=== PATIENT | female | born 1955 | race Caucasian/White ===

== ENCOUNTER → 2016-05-22 | Day surgery (SDC) | payer OTHER ==
[~2016-05-22] VITALS: Ht 165.1 cm; Wt 83.9 kg
[~2016-05-22] MED LIST: ANASTROZOLE1 M1 PO; B COMPLETE1 EACH PO; CALCIUM 500 +1 EAC5 PO; CO Q-10100 MG PO; IBUPROFEN200 M3 PO; IBUPROFEN400 M1 PO; LIDOCAINE1 EACH TOP; LOSARTAN POTAS100 M1 PO; MEDROL4 M2 PO; OXYCODONE-ACET1 EACH PO; SIMVASTATIN20 M2 PO; STOOL SOFTENER100 M3 PO
--- NOTE | 2016-05-22 15:28 | Operative Report ---
Operative/Inv Procedure Report Surgery Date: 05/22/16 Name of Procedure: Removal of intact implant left, debrided pocket, capsulectomy, complex closure IE debridement. Incision tissue with 2 layer closure 16 centimeters Pre-Operative Diagnosis: Infected left breast implant Post-Operative Diagnosis: Same Estimated Blood Loss: less than 50ml Surgeon/Tenon Machine Operator: ALF SORIANO MD Anesthesia: laryngeal mask airway Operative/Procedure Note Note: Patient was counseled in regards to the procedure the alternatives risks and expected outcomes as relates to removal of left-sided breast implant with recent changes indicative of infection with a positive culture. Patient is likely candidate for autologous reconstruction and we'll consider that in the future. No guarantees were given in regards to the clearance of infection and/or proper wound healing i.e. there is a possibility of an open wound in this radiated field. Informed consent was signed today after additional discussions. She was brought to the operating room placed supine on the operating table. Intravenous antibiotics and laryngeal mask anesthesia was established. This was after the application of Venodyne boots. The chest was prepped and draped in usual sterile fashion. An excision was made through of better quality tissue outside of the dehiscing but intact scar. The implant was removed and there was serous fluid in the area. Previous cytology was taken yesterday in the office. No purulent contents were identified. Capsulectomy was done where appropriate and curettage was carried out of the entirety of the pocket. Triple antibiotic and Betadine irrigation and pulse lavage was used. 2 closure was carried out over a drain. Ends dictation
== END ==
LOC: STS 04:06
DX: T85.79XA Infection and inflammatory reaction due to other internal prosthetic devices, implants and grafts, initial encounter (principal); Y83.8 Other surgical procedures as the cause of abnormal reaction of the patient, or of later complication, without mention of misadventure at the time of the procedure; Z85.3 Personal history of malignant neoplasm of breast; Z90.12 Acquired absence of left breast and nipple; I10 Essential (primary) hypertension
CPT/HCPCS: 87070; 87075; 87184; 87147; 88305; J0690; J1580; J2250; J2405

== ENCOUNTER 2016-06-27 14:17 | Emergency (ER) | payer OTHER ==
[~2016-06-27] VITALS: Ht 165.1 cm; Wt 83.9 kg
[2016-06-27 15:22] LABS: ABSOLUTE BASOPHIL COUNT 0 /CUMM (0.0-0.2); ABSOLUTE EOSINOPHIL COUNT 0 /CUMM (0.0-0.7); ABSOLUTE GRANULOCYTE CT 8.4 /CUMM (1.4-6.5); ABSOLUTE LYMPH COUNT 1.3 /CUMM (1.2-3.4); ABSOLUTE MONOCYTE COUNT 1.4 /CUMM (0.10-0.60); BASOPHIL % 0.2 % (0.0-2.0); EOSINOPHIL % 0.3 % (0-5); GRANULOCYTE % 75.5 % (42.2-75.2); HEMATOCRIT 37.3 % (37-47); MEAN CORPUSCULAR HGB 26.9 PG (27.0-31.0); MEAN CORPUSCULAR HGB CONC 33.5 G/DL (33.0-37.0); MEAN CORPUSCULAR VOLUME 80.4 FL (81.0-99.0); PLATELET COUNT 236 /CUMM (130-400); RBC DISTRIBUTION WIDTH 17.5 % (11.5-14.5); RED BLOOD CELL CT 4.64 /CUMM (4.20-5.40); WHITE BLOOD CELL COUNT 11.2 /CUMM (4.8-10.8)
--- NOTE | 2016-06-27 15:27 | CT SCAN REPORT ---
EXAMINATION: CT HEAD WITHOUT CONTRAST CLINICAL INFORMATION: Headache and syncope. COMPARISON: None TECHNIQUE: Contiguous axial imaging was performed from the skull base to vertex without intravenous administration of contrast. DLP: 600 mGy-cm FINDINGS: There is no evidence of acute intracranial hemorrhage or territorial infarction. No abnormal mass effect or midline shift is seen. [place] to white matter differentiation is well preserved. No extra-axial fluid collections are identified. The ventricles are normal in size. There is no abnormal attenuation within the brain parenchyma. There is anterior falx and posterior tentorial meningeal calcification. The osseous structures and soft tissues are normal. The mastoid air cells and visualized portions of the paranasal sinuses are well aerated. IMPRESSION: No acute intracranial process seen.
[2016-06-27] MEDS ORDERED: ANASTROZOLE1 M1 PO (15:38)
[2016-06-27] MEDS ORDERED: SIMVASTATIN20 M2 PO (15:38)
[2016-06-27] MEDS ORDERED: LOSARTAN POTAS100 M1 PO (15:38)
[2016-06-27] MEDS ORDERED: CO Q-10100 MG PO (15:39)
[2016-06-27] MEDS ORDERED: B COMPLETE1 EACH PO (15:39)
[2016-06-27] MEDS ORDERED: CALCIUM 500 +1 EAC5 PO (15:40)
[2016-06-27] MEDS ORDERED: STOOL SOFTENER100 M3 PO (15:41)
[2016-06-27] MEDS ORDERED: IBUPROFEN200 M3 PO (15:41)
--- NOTE | 2016-06-27 15:42 | ED SYNCOPE COMPLAINT ---
History of Present Illness General Chief Complaint: Syncope and Near-Syncope Stated Complaint: BIBA WITH A SYNCOPE Source: patient, family, EMS Exam Limitations: no limitations Vital Signs & Intake/Output Vital Signs & Intake/Output Vital Signs Date Time Temp Pulse Resp B/P Pulse O2 O2 Flow FiO2 Ox Delivery Rate 06/27 1633 97.0 84 22 128/74 100 Room Air 06/27 1615 97.0 80 18 113/75 100 Room Air 06/27 1534 88 146/80 06/27 1533 85 122/74 06/27 1522 96 Room Air 06/27 1431 97.8 76 18 131/56 98 Room Air Allergies Coded Allergies: raspberry (Intermediate, DEEP PIMPLES IN GROIN AND UNDERARMS AND FACE 06/27/16) Reconcile Medications Anastrozole 1 MG TABLET 1 TAB PO DAILY BREAST CANCER (Reported) Calcium Carbonate/Vitamin D3 (Calcium 500 + D Tablet) (Unknown Strength) TABLET (Unknown Dose) PO TID SUPPLEMENT (Reported) Docusate Sodium (Stool Softener) 100 MG CAPSULE 1 CAP PO DAILY GI (Reported) Ibuprofen 200 MG CAPSULE 3 CAP PO ONCE PAIN (Reported) Losartan Potassium 100 MG TABLET 1 TAB PO DAILY BP (Reported) Simvastatin (Simvastatin*) 20 MG TABLET 1 TAB PO QPM CHOLESTEROL (Reported) Ubidecarenone (Co Q-10) 100 MG CAPSULE 1 CAP PO DAILY SUPPLEMENT (Reported) Vitamin B Complex (B Complete) 1 EACH TABLET 1 CAP PO DAILY SUPPLEMENT ( Reported) Triage Note: 61 YEAR OLD FEMALE TO ER VIA AMBULANCE FROM HER PLACE OF WORK AFTER A SYNCOPLE EPISODE. PT STATES THAT SHE STARTED WITH SINUS HEADACHE YESTERDAY AND STILL HAS A HEADACHE, PAIN IS L SIDE AND STATES THAT ITS BEHIND HER EYE. PT STATES THAT SHE JUST FEELS LIKE SHE CAN'T FUNCTION. 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 WHEN SHE STOOD BACK UP SHE BECAME DIZZY AND THE NEXT THING SHE KNEW SHE WAS WAKING UP WITH STUDENTS AND ANOTHER TEACHER STANDING OVER HER. PT ALSO STATES THAT SHE VOMITTED ALL OVER HERSELF. PT HAS HISTORY OF BREAST CANCER WITH BILATERAL MASECTOMY AND WAS ADMITTED IN MAY DUE TO INFECTIONN TO L IMPLANT. PT PALE , NSR ON MONITOR. Triage Nurses Notes Reviewed? yes HPI: Patient presents for evaluation of a fainting episode that occurred prior to arrival. Patient states she felt well yesterday, well enough to do some snow shoveling. However she did begin having what she felt to be a sinus headache yesterday consisting of a pressure and throbbing sensation about the left eye. She has had many similar headache episodes. She took ibuprofen without improvement. Today she felt faint during the morning but this began to resolve at about 1:30 in the afternoon. She then felt dizzy and near syncopal and put her head down on her desk. The point she vomited and lost consciousness apparently for about 30 seconds. She states that she did have a transient right -sided abdominal pain that has now resolved otherwise she denies fever or cold symptoms diarrhea dysuria or known ill contacts. Past History Travel History Traveled to [place] past 21 day No Medical History Any Pertinent Medical History? see below for history Neurological: NONE EENT: NONE Cardiovascular: hypertension, hyperlipidemia Respiratory: NONE Gastrointestinal: NONE Hepatic: NONE Renal: NONE Musculoskeletal: NONE Psychiatric: NONE Endocrine: NONE Blood Disorders: NONE Cancer(s): breast cancer Other Medical Hx: Migraine headaches, sinus headaches Surgical History Surgical History: STATUS POST SURGICAL REMOVAL OF LEFT BREAST PROSTHESIS 5 WEEKS AGO Psychosocial History What is your primary language Lao Tobacco Use: Never used ETOH Use: denies use Illicit Drug Use: denies illicit drug use Family History Hx Contributory? No Review of Systems Review of Systems Constitutional: Reports: no symptoms. EENTM: Reports: no symptoms. Respiratory: Reports: no symptoms. Cardiovascular: Reports: syncope. GI: Reports: no symptoms. Genitourinary: Reports: no symptoms. Musculoskeletal: Reports: no symptoms. Skin: Reports: no symptoms. Neurological/Psychological: Reports: no symptoms. All Other Systems: Reviewed and Negative Physical Exam Physical Exam Cranial Nerves: CRANIAL NERVES ii THROUGH x INTACT Comments: Gen.: Well-nourished, well-developed, no acute respiratory distress. Head: Normocephalic, atraumatic. Eyes: Normal inspection bilaterally Ears: Normal inspection bilaterally Nose: Normal inspection Throat/mouth : Moist mucosa Neck: Supple, full range of motion, no goiter, no coronary bruits Heart: Regular rate and rhythm, no murmurs rubs or gallops Lungs: Clear to auscultation bilaterally with normal air entry Chest: Nontender Back: Normal range of motion Abdomen: Soft, nontender, nondistended, normal bowel sounds Extremities: Normal range of motion grossly, equal radial pulses, no cyanosis clubbing or edema, normal strength Neurologic: speech is clear, no dysmetria Skin: warm and dry Psychiatric: Calm, cooperative, no apparent delusions or hallucinations Core Measures ACS in differential dx? No CVA/TIA Diagnosis: No Severe Sepsis Present: No Septic Shock Present: No Progress Differential Diagnosis: orthostatic syncope, TIA/CVA, DYSRHYTHMIA Plan of Care: Orders Procedure Date/time Status TROPONIN LEVEL 06/27 1438 Complete COMPREHENSIVE METABOLIC PANEL 06/27 1438 Complete CBC WITHOUT DIFFERENTIAL 06/27 1438 Complete EKG 06/27 1419 Active Laboratory Tests 06/27/16 1444: Anion Gap 13, Estimated GFR > 60, BUN/Creatinine Ratio 17.5, Glucose 107 H, Calcium 9.6, Total Bilirubin 0.8, AST 24, ALT 48, Alkaline Phosphatase 79, Troponin I < 0.01, Total Protein 6.8, Albumin 4.1, Globulin 2.7, Albumin/ Globulin Ratio 1.5, CBC w Diff NO MAN DIFF REQ, RBC 4.64, MCV 80.4 L, MCH 26.9 L, RDW 17.5 H, MPV 10.0, Gran % 75.5 H, Lymphocytes % 11.7 L, Monocytes % 12.3 H, Eosinophils % 0.3, Basophils % 0.2, Absolute Granulocytes 8.4 H, Absolute Lymphocytes 1.3, Absolute Monocytes 1.4 H, Absolute Eosinophils 0, Absolute Basophils 0, PUBS MCHC 33.5 Comments: 06/27/2016 4:37:59 PM During my care of this patient I considered the following differential diagnoses in addition to previously listed: Cardiac syncope/dysrhythmia but the patient had a prodromal phase and the EKG showed no dysrhythmia, there were no significant electrolyte abnormalities, and the patient denied heart palpitations. Obstructive hypertrophic cardiomyopathy but there was no history of syncope with exercise, dyspnea or chest pain on exertion, palpitations or history of cardiac disease Aortic stenosis but the patient is no history of syncope after exercise AND had no crescendo decrescendo systolic murmur or precordial thrill. Subclavian steal syndrome but the patient denied arm pain or paresthesias and physical examination showed no pulse deficit. Carotid sinus hypersensitivity but physical examination reveals no goiter or other neck mass. 06/27/2016 4:59:31 PM patient treated with Toradol and Phenergan. Departure Departure Disposition: HOME OR SELF CARE Condition: Stable Clinical Impression Primary Impression: Syncope Qualifiers: Syncope type: unspecified Qualified Code: R55 - Syncope and collapse Secondary Impressions: Headache Qualifiers: Headache type: other vascular headache Qualified Code: G44.1 - Vascular headache, not elsewhere classified Referrals: MICHAEL MCGRATH MD (PCP/Family) Additional Instructions: Follow-up with your medical doctor tomorrow for reevaluation and further testing as indicated. Return if any concerns or sudden worsening. Departure Forms: Customer Survey General Discharge Information
[2016-06-27 17:19] VITALS: BP 142/80
== END 2016-06-27 17:20 ==
LOC: ERH 14:17
PROVIDERS: Emergency Medicine
DX: R55 Syncope and collapse (principal); R51 Headache
CPT/HCPCS: 93005; 93010; 96374; 96375; J1885; J2550

== ENCOUNTER 2016-09-28 10:30 | Emergency (ER) | payer OTHER ==
[~2016-09-28 10:30] MED LIST changes: -IBUPROFEN400 M1 PO; -LIDOCAINE1 EACH TOP; -MEDROL4 M2 PO; -OXYCODONE-ACET1 EACH PO
--- NOTE | 2016-09-28 11:52 | ED NECK/BACK PAIN COMPLAINT ---
History of Present Illness General Chief Complaint: Low Back Pain/Injury Stated Complaint: LBP Source: patient, family Exam Limitations: no limitations Vital Signs & Intake/Output Vital Signs & Intake/Output Vital Signs Date Time Temp Pulse Resp B/P B/P Pulse O2 O2 Flow FiO2 Mean Ox Delivery Rate 09/28 1328 97.7 69 16 138/76 96 Room Air 09/28 1123 Room Air 09/28 1040 97.9 76 16 144/86 98 Room Air Allergies Coded Allergies: raspberry (Intermediate, DEEP PIMPLES IN GROIN AND UNDERARMS AND FACE 06/27/16) Reconcile Medications Anastrozole 1 MG TABLET 1 TAB PO DAILY BREAST CANCER (Reported) Calcium Carbonate/Vitamin D3 (Calcium 500 + D Tablet) (Unknown Strength) TABLET (Unknown Dose) PO TID SUPPLEMENT (Reported) Docusate Sodium (Stool Softener) 100 MG CAPSULE 1 CAP PO DAILY GI (Reported) Ibuprofen 200 MG CAPSULE 3 CAP PO ONCE PAIN (Reported) Ibuprofen 400 MG TABLET 1 TAB PO Q6P PRN BACK PAIN Lidocaine 5 % ADH..PATCH 1 PAT TOP DAILY BACK PAIN Losartan Potassium 100 MG TABLET 1 TAB PO DAILY BP (Reported) Methylprednisolone. (Medrol) 4 MG TAB.DS.PK 1 DP PO AD DISC HERNIATION 6 on day 1 then reduce by one tablet daily until gone Oxycodone HCl/Acetaminophen (Oxycodone-Acetaminophen 5-325) 5 MG-325 MG TABLET 1 TAB PO TIDPRN BACK PAIN Simvastatin (Simvastatin*) 20 MG TABLET 1 TAB PO QPM CHOLESTEROL (Reported) Ubidecarenone (Co Q-10) 100 MG CAPSULE 1 CAP PO DAILY SUPPLEMENT (Reported) Vitamin B Complex (B Complete) 1 EACH TABLET 1 CAP PO DAILY SUPPLEMENT ( Reported) Triage Note: PT STATES 2 DAYS AGO SHE WAS BENT OVER AND SNEEZED AND SINCE THEN HAS HAD "SCIATICA" TYPE PAIN. REPORTS PAIN SHOOTS DOWN HER RIGHT LEG. PAINFUL TO WALK AND WITH MOVEMENT. Triage Nurses Notes Reviewed? yes HPI: 61F PMH BREAST CANCER S/P BILATERAL MASTECTOMY 1 YEAR AGO PRESENTING WITH SEVERE LOWER BACK PAIN THAT STARTED ACUTELY WHEN SHE SNEEZED VIOLENTLY WHILE BENDING OVER. BACK PAIN IS LUMBAR, PARASPINAL, R>L, WITH RIGHT SCIATIC PAIN YESTERDAY THAT HAS RESOLVED, BUT PATIENT STILL UNABLE TO MOVE WITHOUT SEVERE PAIN. DENIES TRAUMA, FEVER, CHILLS, CHEST PAIN, SOB, ABDOMINAL PAIN, DIARRHEA, DYSURIA, INCONTINENCE, SADDLE PARESTHESIA, LOWER EXTREMITY PARESTHESIA, NUMBNESS, OR MOTOR WEAKNESS. HAD A BONE SCAN LAST WEEK THAT SHOWED POSSIBLE SPINAL METASTASES IN THE THORACIC AND CERVICAL AREA. Past History Travel History Traveled to [place] past 21 day No Medical History Any Pertinent Medical History? see below for history Neurological: NONE EENT: NONE Cardiovascular: hypertension, hyperlipidemia Respiratory: NONE Gastrointestinal: NONE Hepatic: NONE Renal: NONE Musculoskeletal: NONE Psychiatric: NONE Endocrine: NONE Blood Disorders: NONE Cancer(s): breast cancer Other Medical Hx: Migraine headaches, sinus headaches Surgical History Surgical History: STATUS POST SURGICAL REMOVAL OF LEFT BREAST PROSTHESIS 5 WEEKS AGO Psychosocial History What is your primary language Macedonian Tobacco Use: Never used Family History Hx Contributory? No Review of Systems Review of Systems Constitutional: Reports: no symptoms. Eyes: Reports: no symptoms. Ears, Nose, Throat, Mouth: Reports: no symptoms. Respiratory: Reports: no symptoms. Cardiovascular: Reports: no symptoms. Gastrointestinal/Abdominal: Reports: no symptoms. Musculoskeletal: Reports: see HPI. Skin: Reports: no symptoms. Neurological/Psychological: Reports: see HPI. All Other Systems: Reviewed and Negative Physical Exam Physical Exam General Appearance: well developed/nourished, no apparent distress, alert, awake , mild distress Head: atraumatic, normal appearance Eyes: Bilateral: normal appearance. Ears, Nose, Throat, Mouth: hearing grossly normal, moist mucous membrane Neck: normal inspection, supple, full range of motion, normal alignment, no midline tenderness Respiratory: normal breath sounds Cardiovascular: regular rate/rhythm Gastrointestinal: soft, non-tender Back: normal inspection, ROM LIMITED BY PAIN, RIGHT PARASPINAL TENDERNESS, STRAIGHT LEG NEGATIVE Extremities: non-tender, normal range of motion Motor: Deficit L4 Right: No DTR: Deficit L4 Left: No Neurologic/Psych: no motor/sensory deficits Progress Differential Diagnosis: AAA, aortic dissection, C spine injury, carotid dissection, cauda equina syn, herniated disc, myofascial strain, pyelo/UTI, sciatica, spinal cord inj, thoracic outlet syn, T/L spine injury, ureterolithiasis Plan of Care: Orders Procedure Date/time Status Regular Diet 09/28 D Active NO EVIDENCE OF CAUDA EQUINA OR SPINAL CORD IMPINGEMENT OR COMPRESSION. LUMBAR CT SHOWS PSEUDOHERNIATION AND STENOSIS WITH ARTHROPATHY. WILL DISCHARGE PATIENT ON MEDROL DOSE PACK, LIDOCAINE, MOTRIN, PERCOCET. WILL FOLLOW UP WITH PCP AND ONCOLOGIST FOR FURTHER EVALUATION. (BECKY COLE,MIRIAM) Diagnostic Imaging: Viewed by Me: CT Scan. Discussed w/RAD: CT Scan. Radiology Impression: PATIENT: ZAY BARNHART PRESENT AGE: 61 PATIENT ACCOUNT NO: [id number] : 56 LOCATION: [facility] ORDERING PHYSICIAN: MIRIAM PENA MD SERVICE DATE: 09/28/16 EXAM TYPE : CAT - CT LUMB SPINE WO IV CONTRAST EXAMINATION: CT LUMBAR SPINE WITHOUT CONTRAST CLINICAL INFORMATION: History of breast cancer. New back pain. Multiple new foci of abnormal uptake on recent bone scan. COMPARISON: Bone scan 2016. TECHNIQUE: Helical non-contrast CT images were obtained through the lumbar spine and 1.25 and 2.5 mm axial reconstructions were reviewed along with sagittal and coronal MPRs. DLP: 592 mGy-cm FINDINGS: On sagittal reconstructed images, there is normal lumbar lordosis. The vertebral heights are normal. Grade 1 anterolisthesis L4 over L5 is noted. Rest of the vertebral alignment is normal. There are diffuse multiple sclerotic lesions scattered throughout all lumbar vertebrae and visualized sacral vertebrae. Also visualized is a large sclerotic lesion in the right L3 vertebra probably metastatic disease with a second smaller lesion posteriorly at the same level, question Schmorl's node versus lytic lesion. The paravertebral soft tissues are normal. SPINAL LEVELS: T12-L1: Normal. L1-L2: Normal. L2-L3: Normal. L3-L4: Normal. L4-L5: There is grade 1 anterolisthesis with diffuse pseudo disc bulge and moderate-to- significant facet joint hypertrophy resulting in severe spinal canal stenosis. The neural foramina are patent bilaterally. L5-S1: Normal. IMPRESSION: Diffuse small sclerotic lesions throughout lumbosacral spine and bones. In addition, there are lytic lesions in the right L3 vertebra. The second smaller lesion is probable endplate Schmorl's node. Grade 1 anterolisthesis L4 over L5 with moderate diffuse pseudo disc bulge and cvqkdrtf-vj-pvhhgeelzvg facet joint hypertrophy resulting in moderate canal stenosis. Departure Departure Time of Disposition: 1454 Disposition: HOME OR SELF CARE Condition: Stable Clinical Impression Primary Impression: Lumbar herniated disc Secondary Impressions: Metastasis to vertebral column of unknown origin, Spinal stenosis Referrals: MICHAEL MCGRATH MD (PCP/Family) Additional Instructions: TAKE MEDICATIONS DIRECTED. ENCOURAGE MOVEMENT AND AMBULATION. FOLLOW UP WITH YOUR ONCOLOGIST. Departure Forms: Customer Survey General Discharge Information Prescriptions: Current Visit Scripts Methylprednisolone. (Medrol) 1 DP PO AD #1 DP 6 on day 1 then reduce by one tablet daily until gone Ibuprofen 1 TAB PO Q6P PRN BACK PAIN #20 TAB Lidocaine 1 PAT TOP DAILY #30 PAT Oxycodone HCl/Acetaminophen (Oxycodone-Acetaminophen 5-325) 1 TAB PO TIDPRN #15 TAB
[2016-09-28 13:28] VITALS: BP 138/76
--- NOTE | 2016-09-28 14:43 | CT SCAN REPORT ---
EXAMINATION: CT LUMBAR SPINE WITHOUT CONTRAST CLINICAL INFORMATION: History of breast cancer. New back pain. Multiple new foci of abnormal uptake on recent bone scan. COMPARISON: Bone scan 09/24/2016. TECHNIQUE: Helical non-contrast CT images were obtained through the lumbar spine and 1.25 and 2.5 mm axial reconstructions were reviewed along with sagittal and coronal MPRs. DLP: 592 mGy-cm FINDINGS: On sagittal reconstructed images, there is normal lumbar lordosis. The vertebral heights are normal. Grade 1 anterolisthesis L4 over L5 is noted. Rest of the vertebral alignment is normal. There are diffuse multiple sclerotic lesions scattered throughout all lumbar vertebrae and visualized sacral vertebrae. Also visualized is a large sclerotic lesion in the right L3 vertebra probably metastatic disease with a second smaller lesion posteriorly at the same level, question Schmorl's node versus lytic lesion. The paravertebral soft tissues are normal. SPINAL LEVELS: T12-L1: Normal. L1-L2: Normal. L2-L3: Normal. L3-L4: Normal. L4-L5: There is grade 1 anterolisthesis with diffuse pseudo disc bulge and hifeuywj-hx-szwszjxtrya facet joint hypertrophy resulting in severe spinal canal stenosis. The neural foramina are patent bilaterally. L5-S1: Normal. IMPRESSION: Diffuse small sclerotic lesions throughout lumbosacral spine and bones. In addition, there are lytic lesions in the right L3 vertebra. The second smaller lesion is probable endplate Schmorl's node. Grade 1 anterolisthesis L4 over L5 with moderate diffuse pseudo disc bulge and [id number]-[id number] facet joint hypertrophy resulting in moderate canal stenosis.
[2016-09-28] MEDS ORDERED: IBUPROFEN400 M1 PO (14:58)
[2016-09-28] MEDS ORDERED: LIDOCAINE1 EACH TOP (14:58)
[2016-09-28] MEDS ORDERED: OXYCODONE-ACET1 EACH PO (14:58)
[2016-09-28] MEDS ORDERED: MEDROL4 M2 PO (14:58)
== END 2016-09-28 15:07 ==
LOC: ERH 10:30
DX: M51.26 Other intervertebral disc displacement, lumbar region (principal); C79.51 Secondary malignant neoplasm of bone; M48.06 Spinal stenosis, lumbar region

== ENCOUNTER → 2017-10-24 | Day surgery (SDC) | payer OTHER ==
[2007-07-29 23:28] VITALS: BP 131/75
[~2017-10-24] MED LIST changes: +FASLODEX250 MG/5 M INJ; +IBRANCE125 MG PO; +IBUPROFEN400 M1 PO; +LIDOCAINE1 EACH TOP; +MEDROL4 M2 PO; +OXYCODONE-ACET1 EACH PO; +VITAMIN B COMP1 EACH PO; +VITAMIN B-121000 MC3 PO; +XGEVA120 MG/1.1 INJ
--- NOTE | 2017-10-24 10:36 | Operative Report ---
Operative/Inv Procedure Report Surgery Date: 10/24/17 Name of Procedure: right retrograde pyelogram with cystoscopy and ureteroscopy, with stent placement Pre-Operative Diagnosis: right hydronephrosis of unclear etiology Post-Operative Diagnosis: same, extrinsic compression Estimated Blood Loss: teri Surgeon/Road Inspector: Sona Metz MD Anesthesia: local monitored anesthesi Drains: 6x24cm stent Specimens: cytology Complications: none Condition: stable Operative Indication: right hydronephrosis of unclear etiology Operative/Procedure Note Note: 62 yo female with a history of lobular breast cancer with metastasis. She presented to my office with new onset right hydroureteronephrosis found on PET scan. Further imaging was performed with renal ultrasound and CT scan and was found to have some thickening in the right ureteral wall. However it was unclear whether it was ureteral in origin or due to extrinsic compression. She was given the risks benefits and alternatives of cystoscopy with retrograde pyelogram with ureteroscopy possible biopsy and possible stent placement. This was reviewed with the patient and the in the office and in the holding area. All questions were answered and consent was signed. Patient's right side was marked. Patient was taken to the operating placed on the operating table in supine position. Timeout was performed. IV antibiotics were infused and SCDs were placed on the patient's lower extremities. LMA anesthesia was begun and the patient was placed in the dorsolithotomy position. Cystoscopy was performed and the bladder was globally inspected. The right ureteral orifice was more lateral and superior than typical and the left ureteral orifice was difficult to locate as well. Picture was taken of the right ureteral orifice. A solo guidewire was placed with fluoroscopic guidance followed by a semirigid ureteroscope. However the semirigid ureteroscope was not able to be passed beyond the distal UVJ. As a result the right ureteral orifice was cannulated with a tiger tail 5 Czech open-ended catheter to perform a retrograde pyelogram full-strength Omnipaque. This demonstrated narrowing of the ureter from the L4 to L5 level of the ureter that was tapered and did not have an apple core lesion in appearance. A dual- lumen catheter was then used to place a second [employer] guidewire under fluoroscopic guidance. This wire was then used to place a digital ureteroscope to examine the length of the ureter. Digital ureteroscope was traversed up to the UPJ and the wire was removed. The scope was then slowly withdrawn to examine the length of the ureter. Periodic fluoroscopy was performed to determine the exact location of the flexible ureteroscope. When the area of the proximal narrowing was reached it was no internal ureteral mass or abnormality of the ureteral wall. The area of the narrowing also was absent of any abnormality as well as the distal area of narrowing. As result there was nothing to biopsy. Pictures were taken with the ureteroscope throughout the length of the ureter. There was some UPJ narrowing at the proximal portion but no other issues were appreciated. The ureteroscope was removed and a cystoscopy was then used to place a 6 x 24 cm ureteral stent over the solo guidewire. This was done without difficulty with fluoroscopic guidance. The stent was seen to be in good position with the proximal pigtail in the renal pelvis and the distal one in the bladder. Bladder was emptied. Patient tolerated procedure well. She was cleaned with Betadine solution transferred to the recovery room stable condition. Findings: Narrowing of the right ureter from L4 to L5 with no intrinsic abnormality or ureteral tumors appreciated. An extrinsic narrowing of the ureter was presumed given the character of the narrowing of the distal ureter. Discharge Disposition: PACU
--- NOTE | 2017-10-24 14:31 | RADIOLOGY REPORT ---
EXAMINATION: XR ABDOMEN CLINICAL INDICATION: Right ureteroscopy. COMPARISON: CT scan of the abdomen 12/29/2014. TECHNIQUE: Multiple spot images of the right abdomen and pelvis were obtained during a right retrograde pyelogram, ureteroscopy and placement of a double-J catheter. FINDINGS: 12 images were obtained during the procedure. Please see the clinical nodes for further details about the procedure. Fluoroscopy time: 28 seconds. kVp: 103. mAs: 1.6. IMPRESSION: 1. Fluoroscopic images obtained during a right retrograde pyelogram, ureteroscopy and placement of a double-J catheter. Please see clinical notes for further details about the procedure.
== END ==
LOC: STS 03:30
DX: N13.30 Unspecified hydronephrosis (principal); N28.9 Disorder of kidney and ureter, unspecified; I10 Essential (primary) hypertension; E11.9 Type 2 diabetes mellitus without complications; K21.9 Gastro-esophageal reflux disease without esophagitis
CPT/HCPCS: 74018; 88305; C2617; J0131; J0690; J2250